=== PATIENT | male | born 1995 | race Caucasian/White ===

== ENCOUNTER 2018-05-26 16:47 | Emergency (ER) | payer MEDICAID ==
[~2018-05-26] VITALS: Ht 180.3 cm; Wt 120.0 kg
[2018-05-26] MEDS ORDERED: FAMOTIDINE 20MG/2ML VIAL IV STA (18:10)
[2018-05-26] MEDS ORDERED: KETOROLAC 15MG/ML VIAL IV ONE (18:15)
[2018-05-26] MEDS ORDERED: ONDANSETRON HCL 4MG/2ML INJ IV ONE (18:15)
[2018-05-26] MEDS ORDERED: MAGNESIUM/ALUMINUM HYDROXIDE/SIMETHICONE 30ML UDC PO ONE (18:15)
[2018-05-26 18:36] LABS: CHLORIDE 106 mEq/L (98-107)
[2018-05-26 19:36] LABS: BASOPHILS % 0.8 % (0.0-2.0); EOSINOPHILS % 2.6 % (0.0-5.0); HEMATOCRIT. 45.8 % (42.0-52.0); HEMOGLOBIN. 15.5 g/dL (14.0-18.0); LYMPHOCYTES % 25.2 % (20.0-50.0); MEAN CORPUSCULAR HEMOGLOBIN 29.7 pg (28.0-32.0); MEAN CORPUSCULAR VOLUME 87.5 fL (80.0-94.0); MEAN PLATELET VOLUME 8.2 fl (7.4-10.4); MONOCYTES % 8.7 % (2.0-8.0); NEUTROPHILS % 62.7 % (40.0-76.0); PLATELET 268 x1000/uL (130-400); RED BLOOD CELL COUNT 5.24 mill/uL (4.7-6.1); RED CELL DISTRIBUTION WIDTH 13.5 % (11.6-14.6)
[2018-05-26 21:29] VITALS: BP 117/66
== END 2018-05-26 21:37 | disposition home or self-care (01) ==
LOC: ER 16:47
DX: K29.70 Gastritis, unspecified, without bleeding (principal); F17.200 Nicotine dependence, unspecified, uncomplicated; Z90.49 Acquired absence of other specified parts of digestive tract
CPT/HCPCS: 36415; 80053; 83690; 85025; 85610; 96374; 96375; 99283; J1885; J2405; J3490; Z7610